=== PATIENT | female | born 1990 | race Two or more races ===

== ENCOUNTER 2020-12-16 02:03 | Emergency (ER) | payer OTHER ==
[~2020-12-16] VITALS: Ht 157.5 cm; Wt 70.5 kg
[2020-12-16 02:49] VITALS: BP 121/70
[2020-12-16 02:51] LABS: COVID AG,FIA SOURCE NASOPHARYNGEAL
== END 2020-12-16 04:07 | disposition home or self-care (01) ==
LOC: EMS 02:05
DX: Z20.822 Contact with and (suspected) exposure to COVID-19 (principal)
CPT/HCPCS: 87426; 99283; U0003